=== PATIENT | female | born 1995 | race Caucasian/White ===

== ENCOUNTER 2022-09-18 17:26 | Emergency (ER) | payer BC, SELFPAY ==
[2022-09-18 17:41] VITALS: BP 114/69; PULSE 110; RESP 18; TEMP 36.6; O2SAT 100; BMI 32.9
--- NOTE | 2022-09-18 20:30 | ED.NURSE ---
pt. signed refusal form to see pt. ambulatory from ER.
[2022-09-18 21:58] VITALS: BP 114/69; PULSE 110; RESP 18; TEMP 36.6
== END 2022-09-18 20:30 | disposition left against medical advice (07) ==
DX: Z53.21 Procedure and treatment not carried out due to patient leaving prior to being seen by health care provider (principal)
CPT/HCPCS: 99281